=== PATIENT | male | born 1970 | race Caucasian/White ===

== ENCOUNTER 2017-12-10 23:45 | Emergency (ER) | payer SELFPAY ==
[~2017-12-10] VITALS: Ht 170.2 cm; Wt 60.0 kg
[~2017-12-10 23:45] MED LIST: DIPH50TA PO
[2017-12-10 23:55] VITALS: BP 152/89; PULSE 103; RESP 18; TEMP 98.4; O2SAT 100
--- NOTE | 2017-12-11 00:35 | PD ---
HPI Chief Complaint: Complaint Time Seen by Provider: 00:32 Travel History International Travel<30 days: No Contact w/Intl Traveler<30days: No Traveled to known affect area: No History of Present Illness HPI The patient is a 47 year old male who presents to the [facility] emergency department with a history of abdominal pain that suddenly began in awoken from sound sleep on Monday night. The patient reports that the pain was initially severe like a sensation of being shot in the lower abdomen. He reports that it was associated with testicle pain in bilateral testicles worse on the right compared to left. He reports that the pain has improved since then although continues to be present and constant. He reports that the testicles do not appear to be hanging properly in his scrotum. He denies having any genital lesions. He denies having any new sexual partners. He denies having any penile discharge or swelling of his scrotum. He denies having any dysuria, urinary frequency, or urinary urgency. He reports that he has had difficulty starting his stream of urine. The patient reports having nausea without vomiting. On review of systems otherwise, the patient denies having any known recent fevers, cough or congestion, neck pain, chest pain, shortness of breath, diarrhea, urinary symptoms, or neurologic symptoms. [facility] Past Medical History Narrative Medical The patient's past medical history is significant for heroin use. 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 Diminished Hearing: No Immunizations Current: No Shingles: Yes (NERVE PAIN IN BACK) Tetanus Vaccination: < 5 Years Influenza Vaccination: No Past Surgical History Narrative Surgical The patient's past surgical history is significant for wisdom teeth extraction. Oral Surgery: Yes (wisdom teeth) Social History Alcohol Use: No Tobacco Use: No Substance Use: Yes Allergies-Medications (Allergen,Severity, Reaction): Coded Allergies: nut - unspecified (Verified Allergy, Severe, 12/10/17) swelling Reported Meds & Prescriptions Reported Meds & Active Scripts Active EC-Naprosyn (Naproxen) 500 Mg Tabdr 500 Mg PO BID PRN Cipro (Ciprofloxacin HCl) 500 Mg Tab 500 Mg PO BID 10 Days Narrative Medication The patient is currently on Subutex Review of Systems Except as stated in HPI: all other systems reviewed are Neg General / Constitutional: No: Fever Eyes: No: Visual changes HENT: No: Headaches Cardiovascular: No: Chest Pain or Discomfort Respiratory: No: Shortness of Breath Gastrointestinal: Positive: Nausea, Abdominal Pain, No: Vomiting, Diarrhea, Changes in Bowel Habits, Indigestion, Loss of Appetite Genitourinary: Positive: Hesitancy, No: Urgency, Frequency, Dysuria Musculoskeletal: No: Pain Skin: No Rash Neurologic: No: Weakness, Focal Abnormalities, Change in Mentation, Slurred Speech, Sensory Disturbance Psychiatric: No: Depression Endocrine: No: Polydipsia Hematologic/Lymphatic: No: Easy Bruising Physical Exam Narrative General: The patient is a well-developed, thin appearing male, in no acute distress. Head and Neck exam: Head is normocephalic atraumatic. Eyes: EOMI, pupils are equal round and reactive to light. Nose: Midline septum with pink mucous membranes Mouth: Dentition unremarkable. Moist mucus membranes. Posterior oropharynx is not erythematous. No tonsillar hypertrophy. Uvula midline. Airway patent. Neck: No palpable lymphadenopathy. No nuchal rigidity. No thyromegaly. Cardiovascular: Regular rate and rhythm without murmurs, gallops, or rubs. Lungs: Clear to auscultation bilaterally. No wheezes, rhonchi, or rales. Abdomen: Soft, without tenderness to palpation in all 4 quadrants of the abdomen. No guarding, rebound, or rigidity. Normal bowel sounds are audible. No tenderness on palpation of McBurney's point. Negative Hackett sign. Extremities: No clubbing, cyanosis, or edema. 2+ pulses in all 4 extremities. No calf tenderness on palpation peer Back: No spinous process tenderness to palpation. No costovertebral angle tenderness to palpation. Neurologic Exam: Grossly nonfocal Skin Exam: No rash noted. Intact skin that is warm and dry. Genital exam: The patient is a circumcised male. No genital lesions or rash noted. No scrotal swelling, however he reports pain on palpation bilaterally most prominent on the right with pain worse along palpation over the spermatic cord and posterior testicle. No palpable testicle masses. No palpable hernia. Data Data Last Documented VS Vital Signs Date Time Temp Pulse Resp B/P (MAP) Pulse Ox O2 Delivery O2 Flow Rate FiO2 12/10/17 23:55 98.4 103 18 152/89 (110) 100 Orders Orders Complete Blood Count With Diff (12/11/17 00:33) Basic Metabolic Panel (Bmp) (12/11/17 00:33) C-Reactive Protein (Crp) (12/11/17 00:33) Urinalysis - C+S If Indicated (12/11/17 00:33) Gc And Chlamydia Pcr (12/11/17 00:33) Iv Access Insert/Monitor (12/11/17 00:33) Ecg Monitoring (12/11/17 00:33) Oximetry (12/11/17 00:33) Us Testicles W Doppler (12/11/17 00:33) Ct Abd/Pel W/O Iv Contrast (12/11/17 00:58) Sodium Chlor 0.9% 1000 Ml Inj (Ns 1000 M (12/11/17 02:15) Ondansetron Inj (Zofran Inj) (12/11/17 02:15) Ketorolac Inj (Toradol Inj) (12/11/17 02:15) Ceftriaxone Inj (Rocephin Inj) (12/11/17 02:15) Azithromycin Powd Pack (Zithromax Powd P (12/11/17 03:30) Labs Laboratory Tests Test 12/11/17 02:00 12/11/17 03:15 Urine Color DARK-YELLOW Urine Turbidity CLEAR Urine pH 5.5 Urine Specific [place] 1.030 Urine Protein 30 mg/dL Urine Glucose (UA) NEG mg/dL Urine Ketones NEG mg/dL Urine Occult Blood SMALL Urine Nitrite NEG Urine Bilirubin NEG Urine Urobilinogen 2.0 MG/DL Urine Leukocyte Esterase NEG Urine RBC 13 /hpf Urine WBC 1 /hpf Urine Squamous Epithelial Cells <1 /hpf Urine Mucus MANY /lpf Microscopic Urinalysis Comment CULT NOT INDICATED White Blood Count 9.9 TH/MM3 Red Blood Count 4.04 MIL/MM3 Hemoglobin 12.0 GM/DL Hematocrit 35.4 % Mean Corpuscular Volume 87.6 FL Mean Corpuscular Hemoglobin 29.8 PG Mean Corpuscular Hemoglobin Concent 34.0 % Red Cell Distribution Width 13.3 % Platelet Count 379 TH/MM3 Mean Platelet Volume 7.1 FL Neutrophils (%) (Auto) 67.3 % Lymphocytes (%) (Auto) 20.2 % Monocytes (%) (Auto) 11.4 % Eosinophils (%) (Auto) 0.8 % Basophils (%) (Auto) 0.3 % Neutrophils # (Auto) 6.6 TH/MM3 Lymphocytes # (Auto) 2.0 TH/MM3 Monocytes # (Auto) 1.1 TH/MM3 Eosinophils # (Auto) 0.1 TH/MM3 Basophils # (Auto) 0.0 TH/MM3 CBC Comment DIFF FINAL Differential Comment Blood Urea Nitrogen 19 MG/DL Creatinine 0.90 MG/DL Random Glucose 85 MG/DL Calcium Level 8.7 MG/DL Sodium Level 141 MEQ/L Potassium Level 3.6 MEQ/L Chloride Level 108 MEQ/L Carbon Dioxide Level 27.4 MEQ/L Anion Gap 6 MEQ/L Estimat Glomerular Filtration Rate 90 ML/MIN C-Reactive Protein LESS THAN 0.29 MG/DL MDM Medical Decision Making Medical Screen Exam Complete: Yes Emergency Medical Condition: Yes Medical Record Reviewed: Yes Interpretation(s) Last Impressions Abdomen/Pelvis CT 12/11/17 0058 Signed Impressions: Service Date/Time: Monday, December 11, 2017 01:23 - CONCLUSION: 1. No stones or evidence of obstructive uropathy. 2. Cystitis possible in the proper clinical setting. 3. 16mm focal left renal lesion not accurately characterized. Renal ultrasound may be helpful in determining whether this is cystic or solid. 4. Considerable stool throughout the colon. Grzegorz Ambrosio MD Scrotum Ultrasound 12/11/17 0033 Signed Impressions: Service Date/Time: Monday, December 11, 2017 02:44 - CONCLUSION: Tiny hydrocele fluid on the right and small varicocele on the left. Otherwise negative. Normal testes. Grzegorz Ambrosio MD Differential Diagnosis Testicular torsion, versus epididymitis, versus orchitis, versus kidney stone, versus varicocele, versus hydrocele Narrative Course During the course of the patient's emergency department visit, the patient's history, examination, and differential diagnosis were reviewed with the patient. The patient was placed on a threat monitoring analyst with oximetry and frequent blood pressure monitoring. The patient had IV access obtained and blood work sent for analysis. A CT scan of the abdomen and pelvis without contrast has been ordered. An ultrasound of the testicles has been ordered The patient was initially provided normal saline 1 L IV fluid bolus, Toradol for pain, Zofran for nausea, Rocephin 1 g IV, Zithromax 1 g p.o. The patient's laboratory studies were reviewed and remarkable for a white count of 9.9, hemoglobin 12, platelets 379 with 11.4- monocytes, basic metabolic profile is remarkable for chloride of 108, BUN 19, C-reactive protein is less than 0.29. Urinalysis shows 30 protein small occult blood 13 RBCs many mucus Radiology studies were reviewed and remarkable for a CT scan of the abdomen and pelvis showed no stones or evidence of obstructive uropathy, cystitis possible in the proper clinical setting with bladder wall thickening, 60 mm focal left renal lesion not accurately characterize, renal ultrasound may be helpful. Constipation is noted. The patient is provided an outpatient ultrasound lab slip to follow-up with as an outpatient for his 60 mm left renal lesion. The patient is given a copy of the CT scan report. The patient is also instructed to follow-up with the urologist regarding his symptoms. The patient's ultrasound revealed a tiny hydrocele containing fluid on the right and a small varicocele on the left. Otherwise negative normal testicles. The patient is given the name of the urologist contact lens blocker for follow-up, . The patient is instructed to call his office in the morning to schedule follow-up appointment. The patient will be treated with ciprofloxacin and Naprosyn. The patient is instructed to push fluids and get plenty of rest. The patient is resting comfortably and feels better, is alert and in no distress. The patient's results and examination findings were discussed with the patient. The repeat examination is unremarkable and benign. The history, exam, diagnostic testing, and current condition do not suggest any significant pathology to warrant further testing, continued ED treatment, admission, or surgical evaluation at this point. The vital signs have been stable. The patient does not have uncontrollable pain, intractable vomiting, or other significant symptoms. The patient's condition is stable and appropriate for discharge. The patient will pursue further outpatient evaluation with a primary care physician or other designated or consulting physician as indicated in the discharge instructions. The patient expressed understanding and was agreeable with this plan. Diagnosis Primary Impression: Varicocele present on ultrasound of scrotum Additional Impressions: Renal lesion Acute cystitis with hematuria Referrals: Marko Dobbins MD 3 days Patient Instructions: General Instructions, Testicle Pain (ED), Urinary Tract Infection in Men (ED), Varicocele (ED) Med/Other Pt SpecificInfo: Prescription(s) given Scripts Naproxmichelle GRANADO (EC-Naprosyn) 500 Mg Tabdr 500 MG PO BID Y for PAIN GREATER THAN 5, #10 TAB 0 Refills Prov: Lacie Preston MD 12/11/17 Ciprofloxacin (Cipro) 500 Mg Tab 500 MG PO BID for Infection for 10 Days, #20 TAB 0 Refills Prov: Lacie Preston MD 12/11/17 Disposition: 01 DISCHARGE HOME Condition: Stable Lacie Preston MD Dec 11, 2017 00:35
--- NOTE | 2017-12-11 02:01 | RADRPT ---
EXAM DATE/TIME: 12/11/2017 01:23 [facility] COMPARISON: No previous studies available for comparison. INDICATIONS : Testicular pain; rule out renal calculi. ORAL CONTRAST: No oral contrast ingested. RADIATION DOSE: 3.18 CTDIvol (mGy) MEDICAL HISTORY : None SURGICAL HISTORY : None. ENCOUNTER: Initial ACUITY: 1 day PAIN SCALE: 10/10 LOCATION: abdomen TECHNIQUE: Volumetric scanning of the abdomen and pelvis was performed. Using automated exposure control and ad justment of the mA and/or kV according to patient size, radiation dose was kept as low as reasonably achievable to obtain optimal diagnostic quality images. DICOM format image data is available electro nically for review and comparison. FINDINGS: LOWER LUNGS: The visualized lower lungs are clear. LIVER: Homogeneous density without lesion. There is no dilation of the biliary tree. No calcified gallston es. SPLEEN: Normal size without lesion. PANCREAS: Within normal limits. KIDNEYS: Normal in size and shape. No stone or hydronephrosis. 16mm indeterminate mass posteriorly of the left upper pole.. ADRENAL GLANDS: Within normal limits. VASCULAR: There is no aortic aneurysm. BOWEL/MESENTERY: The stomach, small bowel, and colon demonstrate no acute abnormality. Considerable stool throughout the colon. There is no free intraperitoneal air or fluid. ABDOMINAL WALL: Within normal limits. RETROPERITONEUM: There is no lymphadenopathy. BLADDER: Appears to have mild diffuse wall thickening. REPRODUCTIVE: Within normal limits. INGUINAL: There is no lymphadenopathy or hernia. MUSCULOSKELETAL: Within normal limits for patient age. CONCLUSION: 1. No stones or evidence of obstructive uropathy. 2. Cystitis possible in the proper clinical setting. 3. 16mm focal left renal lesion not accurately characterized. Renal ultrasound may be helpful in dete rmining whether this is cystic or solid. 4. Considerable stool throughout the colon. Grzegorz Ambrosio MD on December 11, 2017 at 1:56 Board Certified Radiologist. This report was verified electronically.
[2017-12-11] MEDS ORDERED: SODIUM CHLOR 0.9% 1000 ML INJ 1,000 ML IV ONE (02:15)
[2017-12-11] MEDS ORDERED: KETOROLAC TROMETHAMINE 30 MG/ML (IVP) VIAL IV PUSH ONE (02:15)
[2017-12-11] MEDS ORDERED: cefTRIAXone INJ 1,000 MG in SODIUM CHLORIDE 0.9% INJ 100 ML IV ONE (02:15)
[2017-12-11] MEDS ORDERED: ONDANSETRON HCL 4 MG/2 ML VIAL IV ONE (02:15)
[2017-12-11 02:19] LABS: BILIRUBIN, URINE NEG (NEG); BLOOD, URINE SMALL (NEG); GLUCOSE,URINE NEG (NEG); KETONE, URINE NEG (NEG); MUCUS URINE MANY /lpf (OCC); NITRITE,URINE NEG (NEG); PH, URINE 5.5 (5.0-8.5); SQUAMOUS EPITHELIAL CELL URINE <1 /hpf (0-5); URINE COLOR DARK-YELLOW (YELLW/STRAW); URINE LEUKOCYTE ESTERASE NEG (NEG)
[2017-12-11 03:22] LABS: AUTOMATED NEUTROPHIL # 6.6 TH/MM3 (1.8-7.7); BASOPHIL % 0.3 % (0.0-2.0); EOSINOPHIL # 0.1 TH/MM3 (0-0.4); EOSINOPHIL % 0.8 % (0.0-4.0); HEMATOCRIT 35.4 % (39.0-51.0); LYMPH % 20.2 % (9.0-44.0); MEAN CELL VOLUME 87.6 FL (80.0-100.0); MEAN CORPUSCULAR HEMOGLOBIN 29.8 PG (27.0-34.0); MEAN PLATELET VOLUME 7.1 FL (7.0-11.0); MONO % 11.4 % (0.0-8.0); MONOCYTE # 1.1 TH/MM3 (0-0.9); NEUT % 67.3 % (16.0-70.0); PLATELET COUNT 379 TH/MM3 (150-450); RED BLOOD COUNT 4.04 MIL/MM3 (4.50-5.90); RED CELL DISTRIBUTION WIDTH 13.3 % (11.6-17.2); WHITE BLOOD COUNT 9.9 TH/MM3 (4.0-11.0)
[2017-12-11] MEDS ORDERED: AZITHROMYCIN PWD FOR SUSP 1 GM PACKET PO ONE (03:30)
[2017-12-11 03:44] LABS: BICARBONATE 27.4 MEQ/L (21.0-32.0); BLOOD UREA NITROGEN 19 MG/DL (7-18); C-REACTIVE PROTEIN LESS THAN 0.29 MG/DL (0.00-0.30); CALCIUM 8.7 MG/DL (8.5-10.1); CHLORIDE 108 MEQ/L (98-107); GLOMERULAR FILTRATION RATE 90 ML/MIN (>89); GLUCOSE,RANDOM 85 MG/DL (74-106); SODIUM (NA) 141 MEQ/L (136-145)
--- NOTE | 2017-12-11 03:52 | RADRPT ---
EXAM DATE/TIME: 12/11/2017 02:44 [facility] COMPARISON: No previous studies available for comparison. INDICATIONS : Bilateral scrotal pain. MEDICAL HISTORY : Substance abuse. Shingles. SURGICAL HISTORY : [place] teeth removal. ENCOUNTER: Initial ACUITY: 3 days PAIN SCORE: 5/10 LOCATION: Bilateral scrotum. MEASUREMENTS: RIGHT TESTICLE: 4.6 x 3.0 x 2.6cm LEFT TESTICLE: 4.2 x 3.1 x 2.3cm FINDINGS: RIGHT TESTICLE: Homogeneous echotexture without intra or extratesticular mass. Blood flow is symmetric and within no rmal limits. Tiny hydrocele. No varicocele. Epididymis is within normal limits. LEFT TESTICLE: Homogeneous echotexture without intra or extratesticular mass. Blood flow is symmetric and within no rmal limits. Small varicocele. No hydrocele. Epididymis is within normal limits. SCROTUM: Within normal limits. CONCLUSION: Tiny hydrocele fluid on the right and small varicocele on the left. Otherwise negative. Normal testes . Grzegorz Ambrosio MD on December 11, 2017 at 3:49 Board Certified Radiologist. This report was verified electronically.
[2017-12-11] MEDS ORDERED: NAPR-810 PO (03:54)
[2017-12-11] MEDS ORDERED: CIPR-9 PO (03:54)
== END 2017-12-11 04:38 | disposition home or self-care (01) ==
LOC: NEPC 23:45
DX: I86.1 Scrotal varices (principal); N28.9 Disorder of kidney and ureter, unspecified; N30.01 Acute cystitis with hematuria
CPT/HCPCS: 74176; 76870; 80048; 81001; 85025; 86140; 87491; 87591; 93975; 96374; 96375; 99285; J0696; J1885; J2405; J7030

== ENCOUNTER 2017-12-21 16:58 | Emergency (ER) | payer OTHER ==
[~2017-12-21] VITALS: Ht 172.7 cm; Wt 59.0 kg
[~2017-12-21 16:58] MED LIST changes: +CIPR-9 PO; -DIPH50TA PO; +NAPR-810 PO
[2017-12-21 17:07] VITALS: BP 128/80; PULSE 104; RESP 16; TEMP 98.3; O2SAT 79; O2SAT 97
[2017-12-21 17:48] LABS: AUTOMATED NEUTROPHIL # 4.6 TH/MM3 (1.8-7.7); BASOPHIL # 0.1 TH/MM3 (0-0.2); BASOPHIL % 1.3 % (0.0-2.0); EOSINOPHIL % 0.6 % (0.0-4.0); HEMATOCRIT 40.3 % (39.0-51.0); HEMOGLOBIN 13.5 GM/DL (13.0-17.0); LYMPH % 18.4 % (9.0-44.0); LYMPHOCYTE # 1.2 TH/MM3 (1.0-4.8); MEAN CELL VOLUME 89.9 FL (80.0-100.0); MEAN CORPUSCULAR HGB CONC 33.4 % (32.0-36.0); MEAN PLATELET VOLUME 7.9 FL (7.0-11.0); MONO % 7.4 % (0.0-8.0); MONOCYTE # 0.5 TH/MM3 (0-0.9); NEUT % 72.3 % (16.0-70.0); PLATELET COUNT 368 TH/MM3 (150-450); RED BLOOD COUNT 4.49 MIL/MM3 (4.50-5.90); RED CELL DISTRIBUTION WIDTH 13.7 % (11.6-17.2); WHITE BLOOD COUNT 6.4 TH/MM3 (4.0-11.0)
[2017-12-21] MEDS ORDERED: BUPR8SUB SL (18:01)
[2017-12-21 18:03] LABS: ALBUMIN 3.8 GM/DL (3.4-5.0); AST (GOT) 20 U/L (15-37); BICARBONATE 26.2 MEQ/L (21.0-32.0); BLOOD UREA NITROGEN 13 MG/DL (7-18); CALCIUM 8.9 MG/DL (8.5-10.1); CHLORIDE 106 MEQ/L (98-107); CREATININE 1.07 MG/DL (0.60-1.30); GLOMERULAR FILTRATION RATE 74 ML/MIN (>89); GLUCOSE,RANDOM 108 MG/DL (74-106); SODIUM (NA) 140 MEQ/L (136-145)
[2017-12-21 18:13] LABS: ALKALINE PHOSPHATASE 73 U/L (45-117); ALT (GPT) 24 U/L (12-78); TOTAL BILIRUBIN ADULT 0.4 MG/DL (0.2-1.0); TOTAL PROTEIN 7.9 GM/DL (6.4-8.2)
[2017-12-21 18:31] VITALS: BP 118/68; PULSE 94; RESP 17; TEMP 99.3; O2SAT 100
[2017-12-21] MEDS ORDERED: diphenhydrAMINE HCL 50 MG CAP PO ONE (19:45)
[2017-12-21] MEDS ORDERED: ONDANSETRON ODT 4 MG TAB PO ONE (19:45)
[2017-12-21] MEDS ORDERED: cloNIDine HCL 0.1 MG TAB PO ONE (19:45)
--- NOTE | 2017-12-21 21:32 | PD ---
HPI Chief Complaint: Psychiatric Symptoms Time Seen by Provider: 17:08 Travel History International Travel<30 days: No Contact w/Intl Traveler<30days: No Traveled to known affect area: No History of Present Illness HPI 47-year-old male presents to the ED under Damon act for psychiatric evaluation. According to Damon act paperwork the patient made a threatening gesture and told his mom that he was going to harm himself. On presentation the patient denies suicidal ideation. He states that he is withdrawing from heroin, last use 3 days ago. He states that "when I kill myself it will be away from everyone." He denies previous psychiatric history or psychiatric hospitalization. He endorses insomnia 1 week, cold sweats, nausea, diarrhea. He states that the symptoms are similar to previous withdrawal symptoms. He has no other somatic complaints. He is very uncooperative to history taking and exam. PFSH Past Medical History Diminished Hearing: No Immunizations Current: No Shingles: Yes (NERVE PAIN IN BACK) Past Surgical History Oral Surgery: Yes (wisdom teeth) Social History Alcohol Use: No Tobacco Use: No Substance Use: Yes Allergies-Medications (Allergen,Severity, Reaction): Coded Allergies: nut - unspecified (Verified Allergy, Severe, 12/21/17) swelling Reported Meds & Prescriptions Reported Meds & Active Scripts Active Reported Buprenorphine (Buprenorphine HCl) 8 Mg Subl 8 Mg SL BID Review of Systems ROS Limitations: Uncooperative, Other: Except as stated in HPI: all other systems reviewed are Neg Physical Exam Exam Limitations: Uncooperative Narrative GENERAL: Well-nourished, well-developed white male no acute distress. PSYCH: Irritable, uncooperative SKIN: Focused skin assessment warm/dry. HEAD: Normocephalic. EYES: No scleral icterus. No injection or drainage. NECK: Supple, trachea midline. No JVD or lymphadenopathy. CARDIOVASCULAR: Regular rate and rhythm without murmurs, gallops, or rubs. RESPIRATORY: Breath sounds clear and equal bilaterally. No accessory muscle use. GASTROINTESTINAL: Abdomen soft, non-tender, nondistended. Active bowel sounds. MUSCULOSKELETAL: No cyanosis, or edema. Moves extremities spontaneously. BACK: Nontender without obvious deformity. No CVA tenderness. Data Data Last Documented VS Vital Signs Date Time Temp Pulse Resp B/P (MAP) Pulse Ox O2 Delivery O2 Flow Rate FiO2 12/21/17 21:12 12/21/17 18:31 99.3 94 17 100 Room Air Orders Orders Complete Blood Count With Diff (12/21/17 17:09) Comprehensive Metabolic Panel (12/21/17 17:09) Thyroid Stimulating Hormone (12/21/17 17:09) Psych Screen (12/21/17 17:09) Drug Screen, Random Urine (12/21/17 17:09) Alcohol (Ethanol) (12/21/17 17:09) Diphenhydramine (Benadryl) (12/21/17 19:45) Ondansetron Odt (Zofran Odt) (12/21/17 19:45) Clonidine (Catapres) (12/21/17 19:45) Labs Laboratory Tests Test 12/21/17 17:18 White Blood Count 6.4 TH/MM3 Red Blood Count 4.49 MIL/MM3 Hemoglobin 13.5 GM/DL Hematocrit 40.3 % Mean Corpuscular Volume 89.9 FL Mean Corpuscular Hemoglobin 30.0 PG Mean Corpuscular Hemoglobin Concent 33.4 % Red Cell Distribution Width 13.7 % Platelet Count 368 TH/MM3 Mean Platelet Volume 7.9 FL Neutrophils (%) (Auto) 72.3 % Lymphocytes (%) (Auto) 18.4 % Monocytes (%) (Auto) 7.4 % Eosinophils (%) (Auto) 0.6 % Basophils (%) (Auto) 1.3 % Neutrophils # (Auto) 4.6 TH/MM3 Lymphocytes # (Auto) 1.2 TH/MM3 Monocytes # (Auto) 0.5 TH/MM3 Eosinophils # (Auto) 0.0 TH/MM3 Basophils # (Auto) 0.1 TH/MM3 CBC Comment DIFF FINAL Differential Comment Blood Urea Nitrogen 13 MG/DL Creatinine 1.07 MG/DL Random Glucose 108 MG/DL Total Protein 7.9 GM/DL Albumin 3.8 GM/DL Calcium Level 8.9 MG/DL Alkaline Phosphatase 73 U/L Aspartate Amino Transf (AST/SGOT) 20 U/L Alanine Aminotransferase (ALT/SGPT) 24 U/L Total Bilirubin 0.4 MG/DL Sodium Level 140 MEQ/L Potassium Level 3.9 MEQ/L Chloride Level 106 MEQ/L Carbon Dioxide Level 26.2 MEQ/L Anion Gap 8 MEQ/L Estimat Glomerular Filtration Rate 74 ML/MIN Thyroid Stimulating Hormone 3rd Gen 0.471 uIU/ML Ethyl Alcohol Level LESS THAN 3 MG/DL MDM Medical Decision Making Medical Screen Exam Complete: Yes Emergency Medical Condition: Yes Differential Diagnosis Adjustment disorder versus anxiety versus bipolar versus depression versus dementia versus electrolyte disorder versus malingering versus mood disorder versus ODD versus psychosis versus PTSD versus schizophrenia versus schizoaffective disorder versus substance-induced mood disorder versus other Narrative Course 47-year-old male presents to the ED under [place]toza[place] act for psychiatric evaluation. According to Damon act paperwork the patient made a threatening gesture and told his mom that he was going to harm himself. On presentation the patient denies suicidal ideation. He states that he is withdrawing from heroin, last use 3 days ago. He states that "when I kill myself it will be away from everyone." He denies previous psychiatric history or psychiatric hospitalization. He endorses insomnia 1 week, cold sweats, nausea, diarrhea. He states that the symptoms are similar to previous withdrawal symptoms. He has no other somatic complaints. He is very uncooperative to history taking and exam. Vitals reviewed. Patient is uncooperative to exam. Limited exam is unremarkable. CBC, CMP, TSH, alcohol level without concerning abnormalities. Patient's medically clear for psychiatric evaluation. Pilar Rene Dec 21, 2017 21:32
== END 2017-12-22 03:07 ==
LOC: NEDAMB 16:58 → NEPJ 12-22 03:07
DX: F11.23 Opioid dependence with withdrawal (principal); G47.00 Insomnia, unspecified
CPT/HCPCS: 80053; 80307; 84443; 85025; 99284; Q0163